=== PATIENT | female | born 1960 | race Caucasian/White ===

== ENCOUNTER 2019-03-08 21:42 | Emergency (ER) | payer OTHER ==
[~2019-03-08] VITALS: Ht 162.6 cm; Wt 94.6 kg
[~2019-03-08 21:42] MED LIST: BENAZEPRIL HYDR40 MG PO; CLONIDINE HCL0.2 M1 PO; HCTZ PO; ISOSORBIDE30 MG PO; METFORMIN500 MG PO; METOPROLOL100 MG; METOPROLOL100 MG PO; NIFEDIPINE ER90 M1 PO
[2019-03-08 23:36] VITALS: BP 175/100
== END 2019-03-08 23:39 | disposition home or self-care (01) ==
LOC: ED 21:42
DX: N64.4 Mastodynia (principal); I10 Essential (primary) hypertension; E11.9 Type 2 diabetes mellitus without complications; I25.2 Old myocardial infarction; Z86.73 Personal history of transient ischemic attack (TIA), and cerebral infarction without residual deficits
CPT/HCPCS: 82962

== ENCOUNTER → 2019-04-18 | Day surgery (SDC) | payer OTHER ==
--- NOTE | 2019-04-17 11:15 | NUR ---
CALL TO DR SHERICE CARTWRIGHT'S OFFICE, SPOKE WITH JOSIE. UPDATED WITH PTS PREADMIT LAB RESULTS YPD=297. BUN=26. PT IS DIABETIC. NON FASTING SAMPLE. NO NEW ORDERS AT THIS TIME.
[~2019-04-18] VITALS: Ht 162.6 cm; Wt 96.2 kg
[~2019-04-18] MED LIST changes: +ASPIR 8181 MG PO; +CARVEDILOL6.25 M1 PO; +CLEOCIN HCL150 MG PO; +CLONIDINE HCL0.2 MG PO; +GLU5 PO; +GLYBURIDE5 MG PO; +LOT1C TOP; +METFORMIN HCL1000 MG PO; +NORCO1 TA2 PO
[2019-04-18 09:42] VITALS: BP 154/92
[2019-04-18 17:45] VITALS: BP 130/71
== END | disposition home or self-care (01) ==
LOC: DS 09:00 → OR 13:30
PROVIDERS: Surgery
PROC: 0HBT0ZZ Excision of Right Breast, Open Approach (ICD-10-PCS; principal; 2019-04-18 14:00)
DX: N60.21 Fibroadenosis of right breast (principal); N64.59 Other signs and symptoms in breast; I10 Essential (primary) hypertension; E11.9 Type 2 diabetes mellitus without complications; E66.9 Obesity, unspecified; Z68.36 Body mass index [BMI] 36.0-36.9, adult; Z79.82 Long term (current) use of aspirin; Z79.84 Long term (current) use of oral hypoglycemic drugs; Z79.4 Long term (current) use of insulin; Z90.710 Acquired absence of both cervix and uterus; Z96.651 Presence of right artificial knee joint; Z86.73 Personal history of transient ischemic attack (TIA), and cerebral infarction without residual deficits
CPT/HCPCS: J0690; J1170; J2001; J2250; J2405; J2704; J3010; J3490; J7030

== ENCOUNTER 2019-04-20 20:17 | Inpatient (IN) | payer OTHER ==
[~2019-04-20] VITALS: Ht 162.6 cm; Wt 98.4 kg
[~2019-04-20 20:17] MED LIST changes: -CLEOCIN HCL150 MG PO; -NORCO1 TA2 PO
[2019-04-20 20:50] VITALS: Ht 162.6 cm; Wt 98.4 kg
[2019-04-20 22:39] LABS: BASOPHIL % 0.4 % (0-2); PLATELET COUNT 224 x10^3mcL (130-400)
[2019-04-20 22:44] LABS: CALCIUM 9.5 mg/dL (8.5-10.1); CARBON DIOXIDE 29.2 mmol/L (21-32); CHLORIDE SERUM 104 mmol/L (98-107); CREATININE SERUM 0.9 mg/dL (0.6-1.0); GFR1 > 60 mL/min; GLUCOSE SERUM 93 mg/dL (74-106); POTASSIUM SERUM 3.5 mmol/L (3.5-5.1); RED CELL DISTRIBUTION WIDTH 14.9 % (11.5-14.5); SODIUM SERUM 143 mmol/L (136-145)
--- NOTE | 2019-04-20 22:46 | NUR ---
PT RESTING IN BED, AAOX4 WITH C/O 07/06 TO RT BREAST INCISION SITE 2 DAYS AGO WITH SWELLING/REDNESS/DRAINAGE NOTED/INCREASED TODAY. PT NOTED WITH INCISION TO RT BREAST WITH DRESSINGS CDI WITH SWELLING REDNESS TO ENTIRE BREAST. DAUGHTER AT BEDSIDE FOR ASSISTANCE. PT DENIES ANY FEVER, N/V/D/C, PAINFUL URINATION, OR RESP ILLNESS AT THIS TIME.
[2019-04-20 22:49] LABS: ALBUMIN 3.5 g/dL (3.4-5.0); ALKALINE PHOSPHATASE 79 U/L (46-116); ALT/SGPT 12 U/L (14-59); AST/SGOT 8 U/L (15-37); BILIRUBIN TOTAL 0.31 mg/dL (0.20-1.00); TOTAL PROTEIN, SERUM 7.4 g/dL (6.4-8.2)
--- NOTE | 2019-04-20 23:02 | NUR ---
PT RESTING IN BED WITH DAUGHTER AT BEDSIDE. PER DAUGHTER, PT IS SPEAKING ERRATIC SENTENCES. EXPLAINED TO DAUGHTER SIDE EFFECTS OF PAIN MEDICATIONS GIVEN. DR WISE AT BEDSIDE.
--- NOTE | 2019-04-20 23:48 | NUR ---
CALLED TO GIVE REPORT, RECEIVING RN ASKED TO BE CALLED BACK.
--- NOTE | 2019-04-21 00:05 | NUR ---
REPORT GIVEN TO DREW SIMPSON.
--- NOTE | 2019-04-21 00:33 | NUR ---
PT BP 178/88. DR. FOSTER MADE AWARE. STATED WILL ORDER HYDRALAZINE. WAITING FOR ORDERS.
[2019-04-21 00:38] VITALS: BP 178/88
--- NOTE | 2019-04-21 00:52 | NUR ---
RECEIVED PT FROM ER, PT ADMIT FOR RIGHT BREAST POST OP BREAST HEMATOMA, PT IS A/O X4, VERBAL RESPONSIVE, ABLE TO TELL WHAT SHE NEEDS. LUNG SOUND CLEAR BILATERAL,NO COUGH, NO SOB, PT IS ON 2L/MIN O2 VIA NC. PO2 98%, DENY ANY CHEST PAIN OR DISCOMFORT, BOWEL SOUND PRESENT ALL 4 QUADRANTS, NO DISTENTION, NO TENDER, PEDAL PULSE PRESENT BOTH FEET, NO EDEMA, RIGHT BREAST SURGICAL SITE, STAPLE IS INTACT. THERE IS ECCHYMOSIS SURROUND THE AREA. NO BLEEDING NOTED AT THIS MOMENT, COVERED WITH DRY DRESSING, IV AT RIGHT AC,NO LEAKING,NO INFILTRATION. ALL ADLS ASSIST, ALL NEED MET, CALL LIGHT IN REACH, WILL CONTINUE TO MONITOR.
--- NOTE | 2019-04-21 01:24 | NUR ---
RECIEVED REPORT FROM BLAINE SIMPSON. NO S/S OF PAIN AT THIS TIME. BREATHING EVEN ABD UNLABORED ON 2L NC. DAUGHTER AT BEDSIDE. BED AT LOWEST POSITION. CALL LIGHT WITHIN REACH. WILL CONTINUE TO MONITOR.
[2019-04-21 02:22] VITALS: BP 145/73
--- NOTE | 2019-04-21 02:23 | NUR ---
RECHECKED PT BP PRIOR TO GIVING PRN HYDRALAZINE. BP NOW 145/73. DID NOT GIVE HYDRALAZINE. WILL CONTINUE TO MONITOR.
[2019-04-21 05:50] VITALS: BP 127/82
[2019-04-21 06:26] LABS: BASOPHIL % 0.3 % (0-2); PLATELET COUNT 190 x10^3mcL (130-400)
[2019-04-21 06:29] LABS: RED CELL DISTRIBUTION WIDTH 15.4 % (11.5-14.5)
--- NOTE | 2019-04-21 06:37 | NUR ---
PT RESTING IN BED COMFORTABLY. DAUGHTER AT BEDSIDE. STATES PAIN 10/10 IN BREAST. WILL MEDICATE. BREATHING EVEN AND UNLABORED ON 2L NC. NO SIGNIFICANT CHANGES THIS SHIFT. BED AT LOWEST POSITION. CALL LIGHT WITHIN REACH. WILL CONTINUE TO MONITOR.
[2019-04-21 06:56] LABS: CALCIUM 8.9 mg/dL (8.5-10.1); CARBON DIOXIDE 27.5 mmol/L (21-32); CHLORIDE SERUM 105 mmol/L (98-107); CREATININE SERUM 0.7 mg/dL (0.6-1.0); GFR1 > 60 mL/min; GLUCOSE SERUM 79 mg/dL (74-106); MAGNESIUM 1.8 mg/dL (1.8-2.4); PHOSPHOROUS 4.2 mg/dL (2.5-4.9); POTASSIUM SERUM 3.4 mmol/L (3.5-5.1); SODIUM SERUM 143 mmol/L (136-145)
--- NOTE | 2019-04-21 07:25 | NUR ---
RECEIVED PT FROM DOMINIK RN. PT RECEIVING US OF RIGHT BREAST. NO S/S OF ACUTE DISTRESS. NO SOB ON ROOM AIR. NO CHEST PAIN. MED SURG. CALM/COOPERATIVE. COMPLAINT OF MILD PAIN TO RIGHT BREAST, GIVEN PAIN MED BY DOMINIK RN. NO S/S OF ACUTE DISTRESS. IV WNL TO LAC, NO REDNESS, NO SWELLING, NO INFILTRATION. WOUND TO RIGHT BREAST APPEARS WITH ERYTHEMA, CLOSED WITH NYLA, NO DRAINAGE NOTED AT THIS TIME. INSTRUCTED TO USE CALL LIGHT TO CALL FOR ASSISTANCE PRN. VERBALIZED UNDERSTANDING. SPEAKS ICELANDIC. AA/OX4. WILL CONTINUE TO MONITOR.
[2019-04-21 08:33] VITALS: BP 170/82
--- NOTE | 2019-04-21 12:50 | NUR ---
PT COMPLAINT OF DIFFICULTY BREATHING WITH "CHEST PRESSURE", O2 SAT 97% ON ROOM AIR. PLACED ON 2LNC. RR EVEN/UNLABORED AT THIS TIME. PT APPEARS ANXIOUS. DR. CHOU MADE AWARE, WITH PATIENT AT BEDSIDE. AWAITING FURTHER ORDERS. WILL CONTINUE TO MONITOR
--- NOTE | 2019-04-21 15:07 | NUR ---
PT TAKEN BY TARI FOR PROCEDURE. ACCOMPANIED BY MILLER SUPERVISORCALVIN CREWS. PT AA/OX4. NO S/S OF ACUTE DISTRESS. NO SOB ON ROOM AIR. NO CHEST PAIN. CALM/COOPERATIVE. IV WNL TO RAC, PATENT AND FLUSHES WELL. SALINE LOCKED. NO N/V. ENDORSED TO CALVIN CREWS. NO FEVER. NO CHILLS.
[2019-04-21 17:26] VITALS: BP 151/82
--- NOTE | 2019-04-21 17:31 | NUR ---
PT BACK FROM PROCEDURE. AA/OX4. NO S/S OF ACUTE DISTRESS. DRESSING TO RIGHT BREAST CDI. WOUND CLOSED BY SUTURES AND NYLA. PT DENIES PAIN AT THIS TIME. NO SOB ON ROOM AIR. VS STABLE: TEMP 97.8F, HR 62, O2 SAT 95% ON ROOM AIR, RR 16, BP 151/82. NO TOSCANO. NO DIZZINESS. NO N/V. NO CHILLS. NO FEVER. IV WNL TO RAC, PATENT AND FLUSHES WELL. SALINE LOCKED. BED IN LOW POSITION. CALL LIGHT WITHIN REACH. WILL CONTINUE TO MONITOR.
--- NOTE | 2019-04-21 18:07 | NUR ---
PT AA/OX4. AMBULATORY TO RESTROOM, GAIT SLOW/STEADY. TOLERATED ACTIVITY WELL. VOID X1, URINE CLEAR/YELLOW. NO COMPLAINT OF PAIN WITH URINATION. UA/UDS SAMPLE SENT TO LAB. NO DIZZINESS. COMPLAINT OF TOSCANO, 8/10, ACHING, ACUTE, GIVEN TYLENOL. SEE EMAR. NO S/S OF ACUTE DISTRESS. NO SOB ON ROOM AIR. NO CHEST PAIN. IV WNL TO RAC, SALINE LOCKED. BED IN LOW POSITION. CALL LIGHT WITHIN REACH. WILL ENDORSE TO ONCOMING SHIFT.
[2019-04-21 18:20] LABS: microscopic required? NO
[2019-04-21 19:06] LABS: AMPHETAMINE QUAL UR NONE DETECTED (See below)
[2019-04-21 19:07] LABS: urine erythrocyte NEGATIVE (NEGATIVE)
--- NOTE | 2019-04-21 19:10 | NUR ---
RECEIVED PT FROM PREVIOUS SHIFT NURSE. PT AOX4, DENIES TOSCANO/DIZZINESS. MED SURG PT, DENIES CP/PRESSURE. DENIES SOB/DIFFICULTY BREATHING, ON RA. IV TO RAC, INTACT AND PATENT. BED IN LOWEST POSITION. CALL LIGHT WITHIN REACH. WILL CONTINUE TO MONITOR.
[2019-04-21 21:35] VITALS: BP 145/66
--- NOTE | 2019-04-22 05:18 | NUR ---
CARE ASSUMED FROM DERRICK SIMPSON. PT RESTING COMFORTABLY IN BED. DAUGHTER AT BEDSIDE. NO ACUTE DISTRESS NOTED. EVEN AND UNLABORED RESPIRATIONS ON RA. IV INTACT. DENIES ANY PAIN AT THIS TIME. BED IN LOWEST POSITION. SIDE RAILS UPX2. CALL LIGHT WITHIN REACH. WILL CONTINUE TO MONITOR.
[2019-04-22 06:10] VITALS: BP 152/74
[2019-04-22 06:22] LABS: BASOPHIL % 0.4 % (0-2); PLATELET COUNT 197 x10^3mcL (130-400)
--- NOTE | 2019-04-22 06:22 | NUR ---
PT SLEPT COMFORTABLY IN INTERVAL THROUGHOUT THE SHIFT. DAUGHTER AT BEDSIDE. NO ACUTE CHANGES NOTED. EVEN AND UNLABORED RESPIRATIONS ON RA. IVL PATENT AND INTACT. ALL NEEDS TENDED TO AND MET. SCHEDULED MEDICATIONS GIVEN. SURGICAL INCISION DRESSING TO RIGHT BREAST CDI. BED IN LOWEST POSITION. SIDE RAILS UPX2. CALL LIGHT WITHIN REACH. WILL ENDORSE TO ONCOMING SHIFT.
[2019-04-22 06:37] LABS: RED CELL DISTRIBUTION WIDTH 14.6 % (11.5-14.5)
--- NOTE | 2019-04-22 07:25 | NUR ---
RECEIVED PATIENT FROM WATER PUMP ASSEMBLER NURSE. PATIENT IS RESTING WITH BOTH EYES CLOSED, AROUSABLE. ON ROOM AIR, BREATHING EVEN AND UNLABORED. NYLA AND SUTURES NOTED TO RIGHT BREAST, CDI. IV NOTED TO RAC, SALINE LOCKED, NO S/S ERYTHEMA AT SITE. CALL LIGHT WITHIN EASY REACH. WILL CONTINUE PLAN OF CARE.
[2019-04-22 07:42] LABS: CALCIUM 8.8 mg/dL (8.5-10.1); CARBON DIOXIDE 29.9 mmol/L (21-32); CHLORIDE SERUM 104 mmol/L (98-107); CREATININE SERUM 0.7 mg/dL (0.6-1.0); GFR1 > 60 mL/min; GLUCOSE SERUM 125 mg/dL (74-106); POTASSIUM SERUM 3.8 mmol/L (3.5-5.1); SODIUM SERUM 143 mmol/L (136-145)
[2019-04-22 07:45] VITALS: BP 169/83
--- NOTE | 2019-04-22 11:35 | NUR ---
PROGRAM LEAD CHRISTINE AT BEDSIDE TO DISCUSS PLAN OF CARE WITH PATIENT AND FAMILY.
--- NOTE | 2019-04-22 14:21 | NUR ---
DR SMILEY OH AT BEDSIDE TO SEE PATIENT.
--- NOTE | 2019-04-22 14:49 | NUR ---
STACI KING NOTIFIED THAT DR SHERICE CARTWRIGHT CALLED WITH QUESTIONS REGARDING PATIENTS DC.
[2019-04-22 17:31] VITALS: BP 103/55
--- NOTE | 2019-04-22 18:47 | NUR ---
PATIENT IN NO ACUTE DISTRESS. ON ROOM AIR, RESP E/U, DENIES SOB. CALL LIGHT WITHIN EASY REACH. WILL ENDORSE TO WATER PUMP INSTALLER NURSE.
[2019-04-22 20:20] VITALS: BP 133/70
--- NOTE | 2019-04-23 03:05 | NUR ---
PT RESTING IN BED. RR EVEN AND UNLABORED. IN NO ACUTE DISTRESS. CALL LIGHT WITHIN REACH. BED IN LOWEST POSITION. WILL CONTINUE TO MONITOR.
[2019-04-23 05:31] VITALS: BP 132/73
--- NOTE | 2019-04-23 07:20 | NUR ---
RECEIVED BEDSIDE REPORT. SEEN ASLEEP, NOTED BREATHING E/U ON ROOM AIR. FAMILY MEMBER ALSO ASLEEP AT BEDSIDE. S/L TO RAC NOTED INTACT. ALL SIDERAILS UP X2. CALL NOTED WITHIN EASY REACH. WILL CONTINUE TO MONITOR.
[2019-04-23] MEDS ORDERED: NORCO1 TA2 PO (08:25)
[2019-04-23] MEDS ORDERED: CLEOCIN HCL150 MG PO (08:25)
[2019-04-23 08:40] VITALS: BP 119/65
[2019-04-23 08:46] VITALS: BP 119/65
--- NOTE | 2019-04-23 10:22 | NUR ---
DISCHARGE INSTRUCTION AND PRESCRIPTION GIVEN TO PATIENT AND PATIENT'S DAUGHTER. IV CATHETER REMOVED WITH CATHETER INTACT, DRSG APPLIED. DRSG TO RIGHT BREAST REMOVED, WOUND PHOTO TAKEN, NOTED DRY SURGICAL WOUND WITH 12 NYLA INTACT, NEW DRSG APPLIED. INSTRUCTED TO KEEP WOUND DRY/CLEAN. PATIENT VERBALIZED UNDERSTANDING.
--- NOTE | 2019-04-23 10:35 | NUR ---
BROUGHT VIA WHEELCHAIR ACCOMPANIED BY PATIENT'S DAUGHTER. CONDITION STABLE UPON DISCHARGE.
== END 2019-04-23 10:50 | disposition home or self-care (01) | DRG 813 ==
LOC: ED 20:17 → MU 23:13
PROVIDERS: Emergency Medicine; Surgery; ADMIT General Practice
PROC: 0HCT0ZZ Extirpation of Matter from Right Breast, Open Approach (ICD-10-PCS; principal; 2019-04-21 14:30)
DX: L76.32 Postprocedural hematoma of skin and subcutaneous tissue following other procedure (principal); D64.9 Anemia, unspecified; E11.9 Type 2 diabetes mellitus without complications; E78.5 Hyperlipidemia, unspecified; E66.9 Obesity, unspecified; N61.1 Abscess of the breast and nipple; I10 Essential (primary) hypertension; I25.2 Old myocardial infarction; I16.0 Hypertensive urgency; Y83.8 Other surgical procedures as the cause of abnormal reaction of the patient, or of later complication, without mention of misadventure at the time of the procedure; Z68.36 Body mass index [BMI] 36.0-36.9, adult; Z79.84 Long term (current) use of oral hypoglycemic drugs; Z90.710 Acquired absence of both cervix and uterus; Z85.3 Personal history of malignant neoplasm of breast; Z83.3 Family history of diabetes mellitus; Z82.49 Family history of ischemic heart disease and other diseases of the circulatory system; Z90.721 Acquired absence of ovaries, unilateral; Z68.37 Body mass index [BMI] 37.0-37.9, adult
CPT/HCPCS: 76641; 90732; G0378; J2175; J2250; J2270; J2704; J3010; J3370; J3490; J7030; J7060; Q0092